=== PATIENT | female | born 1940 | race Caucasian/White ===

== ENCOUNTER 2023-09-04 13:36 | Inpatient (IN) | payer MEDICARE, BC ==
[~2023-09-04] VITALS: Ht 162.6 cm; Wt 92.1 kg
[2023-09-04] MEDS ORDERED: ZOLP5TAB8 PO (13:57)
[2023-09-04] MEDS ORDERED: LEVO100T78 PO (13:57)
[2023-09-04] MEDS ORDERED: IRBE300T19 PO (13:57)
[2023-09-04] MEDS ORDERED: CARV6.25 PO (13:57)
[2023-09-04] MEDS ORDERED: ASPI81TA31 PO (13:57)
[2023-09-04] MEDS ORDERED: BUPR100T5 PO (13:57)
[2023-09-04] MEDS ORDERED: FERR236T3 PO (13:57)
[2023-09-04] MEDS ORDERED: NITR50CA PO (13:57)
[2023-09-04] MEDS ORDERED: IMIP25TA6 PO (13:57)
[2023-09-04] MEDS ORDERED: VENL-192 PO (13:57)
[2023-09-04] MEDS ORDERED: BIOT10TA PO (13:57)
[2023-09-04] MEDS ORDERED: PANT40TA2 PO (13:57)
[2023-09-04] MEDS ORDERED: AMLO5TAB4 PO (13:57)
[2023-09-04] MEDS ORDERED: ERGO500040 PO (13:57)
[2023-09-04] MEDS ORDERED: CYAN100T9 PO (13:57)
[2023-09-04] MEDS ORDERED: DEXAMETHASONE SOD PHOSPHATE 10 MG INJ ONE (14:36)
[2023-09-04] MEDS ORDERED: AZITHROMYCIN 500MG/ D5W 250ML IVPB **ER PYXIS ONLY IV ONE (14:37)
[2023-09-04] MEDS ORDERED: CEFTRIAXONE /D5W 50ML IVPB **ER PYXIS IV ONE (14:37)
[2023-09-04 14:38] LABS: BASOPHILS # (AUTO) 0.2 K/UL (0.0-0.2); BASOPHILS % (AUTO) 2.5 % (0.0-2.0); EOSINOPHILS # (AUTO) 0.2 K/uL (0.0-0.7); EOSINOPHILS % (AUTO) 2.7 % (0.0-7.0); HEMATOCRIT 30.4 % (31.2-41.9); HEMOGLOBIN 10.4 g/dL (10.9-14.3); LYMPHOCYTES # (AUTO) 0.5 K/uL (0.8-4.8); LYMPHOCYTES % (AUTO) 7.5 % (20.5-51.5); MEAN CORPUSCULAR HEMOGLOBIN 33.3 uug (24.7-32.8); MEAN CORPUSCULAR HGB CONC 34 g/dL (32.3-35.6); MONOCYTES # (AUTO) 0.6 K/uL (0.1-1.30); MONOCYTES % (AUTO) 9.7 % (0.0-11.0); NEUTROPHILS % (AUTO) 77.6 % (38.5-71.5); PLATELET COUNT (AUTO) 196 K/uL (179-408); RED BLOOD CELL COUNT(AUTO) 3.14 MIL/uL (3.63-4.92); RED CELL DISTRIBUTION WIDTH 13.2 % (12.3-17.7); WHITE BLOOD COUNT (AUTO) 6.4 K/uL (3.8-11.8)
[2023-09-04 14:48] LABS: DIFFERENTIAL COMMENT 1
[2023-09-04] MEDS: DEXAMETHASONE SOD PHOSPHATE 4 MG INJ IV ONE (14:48)
[2023-09-04] MEDS: CEFTRIAXONE 1 G in IV DEXTROSE 5% 50 ML IV ONE (14:48)
[2023-09-04] MEDS: IV NORMAL SALINE 1000 ML BAG IV ONE (14:48)
[2023-09-04 15:05] LABS: CALCIUM 9.5 mg/dL (8.5-10.1); CARBON DIOXIDE 25 mmol/L (21-32); CHLORIDE 97 mmol/L (98-107); CREATININE 1.7 mg/dL (0.6-1.3); GLUCOSE 98 mg/dL (74-106); POTASSIUM 4.5 mmol/L (3.5-5.1); SODIUM SERUM 132 mmol/L (136-145); UREA NITROGEN, BLOOD 41 mg/dL (7-18)
[2023-09-04 15:09] LABS: ALANINE AMINOTRANSFERASE 54 U/L (14-59); ALBUMIN 3.5 g/dL (3.4-5.0); ALKALINE PHOSPHATASE 116 U/L (50-136); ASPARTATE AMINOTRANSFERASE 45 U/L (15-37); BILIRUBIN,DIRECT 0.1 mg/dL (0.0-0.2); BILIRUBIN,TOTAL 0.7 mg/dL (0.2-1.0); NT-PRO BNP 10351 pg/mL (0-125); TOTAL PROTEIN, SERUM 7.5 g/dL (6.4-8.2)
[2023-09-04] MEDS: AZITHROMYCIN 250 MG TABLET PO ONE (15:13)
[2023-09-04] MEDS: FUROSEMIDE 40 MG/4 ML VIAL IV ONE (16:03)
[2023-09-04] MEDS ORDERED: FUROSEMIDE 40 MG/4 ML VIAL ONE (16:03)
[2023-09-04] MEDS ORDERED: NITROGLYCERIN OINT 1 GM PACKET TP ONE (16:03)
[2023-09-04] MEDS: NITROGLYCERIN OINT 1 GM PACKET TP ONE (16:04)
[2023-09-04] MEDS ORDERED: HEPARIN SODIUM,PORCINE 5,000 UNITS/ML VIAL ONE (18:44)
[2023-09-04] MEDS ORDERED: HEPARIN/D5W DRIP 500 ML ONE (18:44)
[2023-09-04] MEDS: HEPARIN SODIUM,PORCINE 5,000 UNITS/ML VIAL IV ONE (18:57)
[2023-09-04] MEDS: HEPARIN/D5W DRIP 500 ML IV PRN (18:59)
[2023-09-04] MEDS ORDERED: ONDANSETRON 4 MG/2 ML VIAL IV PRN (21:15)
[2023-09-04] MEDS ORDERED: ACETAMINOPHEN 325 MG TABLET PO PRN (21:15)
[2023-09-04] MEDS ORDERED: CARVEDILOL 6.25 MG TABLET PO SCH (21:15)
[2023-09-04] MEDS ORDERED: IMIPRAMINE HCL 25 MG TABLET PO SCH (21:15)
[2023-09-04] MEDS ORDERED: HEPARIN/D5W DRIP 500 ML IV PRN (21:15)
[2023-09-04 21:47] LABS: *BILIRUBIN,URIN NEGATIVE (NEGATIVE); *BLOOD, URINE NEGATIVE (NEGATIVE); *CLARITY,URINE CLEAR (CLEAR); *COLOR,URINE YELLOW (YELLOW); *KETONES,URINE NEGATIVE (NEGATIVE); *PROTEIN,URINE NEGATIVE (NEGATIVE); *UROBILINOGEN,URINE 0.2 E.U./dl (NORMAL); LEUKOCYTE ESTERASE ,URINE TRACE (NEGATIVE); NITRITE, URINE NEGATIVE (NEGATIVE); PH,URINE 5.5 (5.0-8.0); UGLUCOSE NEGATIVE (NEGATIVE)
[2023-09-04 21:49] LABS: RBC,URINE 0-3 /HPF (0-3); WBC,URINE 0-3 /HPF (0-3)
[2023-09-05] VITALS (7 sets, daily range): BP systolic 107–147; BP diastolic 52–89; TEMP 97.8–98.4; O2SAT 95–100
[2023-09-05] MEDS: CARVEDILOL 6.25 MG TABLET PO ONE (03:02)
[2023-09-05] MEDS ORDERED: IMIPRAMINE HCL 25 MG TABLET ONE (03:04)
[2023-09-05] MEDS: IMIPRAMINE HCL 25 MG TABLET PO ONE (03:07)
[2023-09-05] MEDS: LEVOTHYROXINE SODIUM 100 MCG TABLET PO SCH (06:31)
[2023-09-05 06:36] LABS: BASOPHILS % (AUTO) 0.7 % (0.0-2.0); EOSINOPHILS % (AUTO) 0.1 % (0.0-7.0); HEMATOCRIT 27.6 % (31.2-41.9); HEMOGLOBIN 9.8 g/dL (10.9-14.3); LYMPHOCYTES # (AUTO) 0.7 K/uL (0.8-4.8); LYMPHOCYTES % (AUTO) 13.9 % (20.5-51.5); MEAN CORPUSCULAR HEMOGLOBIN 34.4 uug (24.7-32.8); MEAN CORPUSCULAR HGB CONC 35 g/dL (32.3-35.6); MEAN CORPUSCULAR VOLUME 97.3 fL (75.5-95.3); MONOCYTES # (AUTO) 0.6 K/uL (0.1-1.30); MONOCYTES % (AUTO) 10.4 % (0.0-11.0); NEUTROPHILS % (AUTO) 74.9 % (38.5-71.5); PLATELET COUNT (AUTO) 169 K/uL (179-408); RED BLOOD CELL COUNT(AUTO) 2.84 MIL/uL (3.63-4.92); RED CELL DISTRIBUTION WIDTH 13.3 % (12.3-17.7); WHITE BLOOD COUNT (AUTO) 5.4 K/uL (3.8-11.8)
[2023-09-05 06:46] LABS: DIFFERENTIAL COMMENT 1
[2023-09-05 07:08] LABS: ALANINE AMINOTRANSFERASE 48 U/L (14-59); ALKALINE PHOSPHATASE 98 U/L (50-136); ASPARTATE AMINOTRANSFERASE 31 U/L (15-37); BILIRUBIN,TOTAL 0.3 mg/dL (0.2-1.0); CALCIUM 9.5 mg/dL (8.5-10.1); CARBON DIOXIDE 26 mmol/L (21-32); CHLORIDE 100 mmol/L (98-107); CHOLESTEROL 184 mg/dL (<200); CREATININE 1.7 mg/dL (0.6-1.3); GLUCOSE 109 mg/dL (74-106); HDL CHOLESTEROL 80 mg/dL (40-60); MAGNESIUM 2.5 mg/dL (1.8-2.4); PHOSPHOROUS 3.2 mg/dL (2.5-4.9); POTASSIUM 4.1 mmol/L (3.5-5.1); SODIUM SERUM 135 mmol/L (136-145); TOTAL PROTEIN, SERUM 6.9 g/dL (6.4-8.2); TRIGLYCERIDES 65 MG/DL (30-150); UREA NITROGEN, BLOOD 38 mg/dL (7-18)
[2023-09-05 07:13] LABS: IRON, SERUM 37 ug/dL (50-175)
[2023-09-05 07:14] LABS: THYROID STIMULATING HORMONE 1.317 mIU/mL (0.358-3.740)
[2023-09-05] MEDS: PANTOPRAZOLE SODIUM 40 MG TABLET.DR PO SCH (08:29)
[2023-09-05] MEDS: AMLODIPINE 5 MG TABLET PO SCH (08:29)
[2023-09-05] MEDS: buPROPion SR 100 MG TABLET.SA PO SCH (08:29)
[2023-09-05] MEDS: ASPIRIN EC 81 MG TABLET.DR PO SCH (08:29)
[2023-09-05] MEDS: VENLAFAXINE 25 MG TABLET PO SCH (09:00)
[2023-09-05] MEDS ORDERED: FUROSEMIDE 40 MG/4 ML VIAL IV SCH (09:00)
[2023-09-05] MEDS ORDERED: FERROUS GLUCONATE PO SCH (09:00)
[2023-09-05] MEDS ORDERED: BIOTIN PO SCH (09:00)
[2023-09-05] MEDS: FERROUS GLUCONATE 324 MG TABLET PO SCH (10:01)
[2023-09-05] MEDS: AZITHROMYCIN IV 500 MG in IV DEXTROSE 5% 250 ML IV SCH (14:52)
[2023-09-05] MEDS: CEFTRIAXONE 1 G in IV DEXTROSE 5% 50 ML IV SCH (14:53)
[2023-09-05] MEDS: CARVEDILOL 6.25 MG TABLET PO SCH (17:05)
[2023-09-05] MEDS ORDERED: DOCUSATE SODIUM 250 MG CAPSULE PO SCH (21:00)
[2023-09-05] MEDS: ATORVASTATIN 40 MG TABLET PO SCH (21:27)
[2023-09-05] MEDS: DOCUSATE SODIUM 100 MG CAPSULE PO SCH (21:27)
[2023-09-05] MEDS: IMIPRAMINE HCL 25 MG TABLET PO SCH (21:30)
[2023-09-05] MEDS: ZOLPIDEM 5 MG TABLET PO SCH (21:50)
[2023-09-06 00:38] VITALS: BP 136/75; TEMP 98.2; O2SAT 100
[2023-09-06 05:24] VITALS: BP 122/73; TEMP 97.9; O2SAT 96; O2SAT 99
[2023-09-06 07:53] LABS: CARBON DIOXIDE 26 mmol/L (21-32); CHLORIDE 99 mmol/L (98-107); CREATININE 1.5 mg/dL (0.6-1.3); GLUCOSE 84 mg/dL (74-106); POTASSIUM 5.4 mmol/L (3.5-5.1); SODIUM SERUM 132 mmol/L (136-145); UREA NITROGEN, BLOOD 35 mg/dL (7-18)
[2023-09-06 08:03] LABS: CALCIUM 9.1 mg/dL (8.5-10.1)
[2023-09-06 08:08] VITALS: BP 108/78; TEMP 97.9; O2SAT 99
[2023-09-06 08:45] LABS: BASOPHILS % (AUTO) 0.6 % (0.0-2.0); DIFFERENTIAL COMMENT 0; EOSINOPHILS # (AUTO) 0.4 K/uL (0.0-0.7); EOSINOPHILS % (AUTO) 5.5 % (0.0-7.0); HEMATOCRIT 26.5 % (31.2-41.9); HEMOGLOBIN 9.4 g/dL (10.9-14.3); LYMPHOCYTES # (AUTO) 2.3 K/uL (0.8-4.8); LYMPHOCYTES % (AUTO) 30.3 % (20.5-51.5); MEAN CORPUSCULAR HEMOGLOBIN 35.9 uug (24.7-32.8); MEAN CORPUSCULAR HGB CONC 36 g/dL (32.3-35.6); MEAN CORPUSCULAR VOLUME 100.7 fL (75.5-95.3); MONOCYTES # (AUTO) 0.8 K/uL (0.1-1.30); MONOCYTES % (AUTO) 10.6 % (0.0-11.0); PLATELET COUNT (AUTO) 222 K/uL (179-408); RED BLOOD CELL COUNT(AUTO) 2.63 MIL/uL (3.63-4.92); RED CELL DISTRIBUTION WIDTH 13.2 % (12.3-17.7); WHITE BLOOD COUNT (AUTO) 7.5 K/uL (3.8-11.8)
[2023-09-06] MEDS: FUROSEMIDE 20 MG/2 ML VIAL IV SCH (10:07)
[2023-09-06] MEDS ORDERED: TIRZEPATIDE SQ (12:16)
[2023-09-06 12:46] VITALS: BP 132/80; TEMP 97.9; O2SAT 100
[2023-09-06] MEDS: IMIPRAMINE HCL 25 MG TABLET PO SCH (13:34)
[2023-09-06 16:01] VITALS: BP 131/75; TEMP 98.2; O2SAT 100
[2023-09-06] MEDS: VENLAFAXINE 25 MG TABLET PO SCH (17:32)
[2023-09-06] MEDS: buPROPion 100 MG TABLET PO SCH (17:32)
[2023-09-06 20:00] VITALS: BP 138/80; TEMP 98.4; O2SAT 100
[2023-09-07 00:52] VITALS: BP 165/90; TEMP 98.3; O2SAT 97
[2023-09-07 06:17] VITALS: BP 152/83; TEMP 97.2; O2SAT 93
[2023-09-07 07:33] LABS: CALCIUM 9.7 mg/dL (8.5-10.1); CARBON DIOXIDE 28 mmol/L (21-32); CHLORIDE 98 mmol/L (98-107); CREATININE 1.6 mg/dL (0.6-1.3); GLUCOSE 91 mg/dL (74-106); SODIUM SERUM 135 mmol/L (136-145); UREA NITROGEN, BLOOD 32 mg/dL (7-18)
[2023-09-07 07:34] LABS: BASOPHILS % (AUTO) 0.7 % (0.0-2.0); EOSINOPHILS # (AUTO) 0.5 K/uL (0.0-0.7); EOSINOPHILS % (AUTO) 6.9 % (0.0-7.0); HEMATOCRIT 27.6 % (31.2-41.9); LYMPHOCYTES # (AUTO) 1.5 K/uL (0.8-4.8); LYMPHOCYTES % (AUTO) 23.1 % (20.5-51.5); MEAN CORPUSCULAR HEMOGLOBIN 37.6 uug (24.7-32.8); MEAN CORPUSCULAR HGB CONC 36 g/dL (32.3-35.6); MEAN CORPUSCULAR VOLUME 103.5 fL (75.5-95.3); MONOCYTES # (AUTO) 0.9 K/uL (0.1-1.30); MONOCYTES % (AUTO) 13.3 % (0.0-11.0); NEUTROPHILS # (AUTO) 3.7 K/uL (1.8-8.9); PLATELET COUNT (AUTO) 193 K/uL (179-408); RED BLOOD CELL COUNT(AUTO) 2.66 MIL/uL (3.63-4.92); RED CELL DISTRIBUTION WIDTH 13.1 % (12.3-17.7); WHITE BLOOD COUNT (AUTO) 6.7 K/uL (3.8-11.8)
[2023-09-07 08:00] VITALS: BP 168/97; TEMP 97.8; O2SAT 100
[2023-09-07 08:05] LABS: DIFFERENTIAL COMMENT 1
[2023-09-07 12:00] VITALS: BP 148/81; TEMP 98.6; O2SAT 100
[2023-09-07] MEDS ORDERED: [UNRECOGNIZED DRUG - OTHER] SQ SCH (12:30)
[2023-09-07] MEDS ORDERED: TIRZEPATIDE SQ SCH (12:30)
[2023-09-07 14:46] VITALS: O2SAT 98
[2023-09-07 16:49] VITALS: BP 131/77; TEMP 98.6; O2SAT 100
[2023-09-07] MEDS ORDERED: GUAIFENESIN LA 600 MG TABLET.SA PO SCH (21:00)
[2023-09-10] MEDS ORDERED: ERGOCALCIFEROL 50,000 UNIT CAPSULE PO SCH (09:00)
== END 2023-09-07 18:57 | disposition short-term general hospital (02) | DRG 280 ==
LOC: ER 13:36 → TELE-TD3 21:00 → TELE3 09-05 08:45
PROVIDERS: ADMIT Internal Medicine; ATTEND Internal Medicine
PROC: 05HC33Z Insertion of Infusion Device into Left Basilic Vein, Percutaneous Approach (ICD-10-PCS; principal; 2023-09-05)
DX: I13.0 Hypertensive heart and chronic kidney disease with heart failure and stage 1 through stage 4 chronic kidney disease, or unspecified chronic kidney disease (principal); I40.0 Infective myocarditis; I21.A1 Myocardial infarction type 2; I50.23 Acute on chronic systolic (congestive) heart failure; N17.0 Acute kidney failure with tubular necrosis; J96.01 Acute respiratory failure with hypoxia; J15.9 Unspecified bacterial pneumonia; D68.59 Other primary thrombophilia; I25.2 Old myocardial infarction; I25.5 Ischemic cardiomyopathy; K21.9 Gastro-esophageal reflux disease without esophagitis; I48.0 Paroxysmal atrial fibrillation; M15.9 Polyosteoarthritis, unspecified; E03.9 Hypothyroidism, unspecified; Z79.890 Hormone replacement therapy; E66.9 Obesity, unspecified; Z68.34 Body mass index [BMI] 34.0-34.9, adult; I27.20 Pulmonary hypertension, unspecified; F32.A Depression, unspecified; Z79.899 Other long term (current) drug therapy; G89.29 Other chronic pain; Z86.73 Personal history of transient ischemic attack (TIA), and cerebral infarction without residual deficits; Z74.09 Other reduced mobility; N18.9 Chronic kidney disease, unspecified; Z87.442 Personal history of urinary calculi; Z88.2 Allergy status to sulfonamides; Z88.0 Allergy status to penicillin; Z90.710 Acquired absence of both cervix and uterus; Z96.612 Presence of left artificial shoulder joint; Z96.611 Presence of right artificial shoulder joint; Z87.440 Personal history of urinary (tract) infections; D53.9 Nutritional anemia, unspecified
CPT/HCPCS: 36415; 70450; 71045; 71250; 83550; 83605; 83735; 84100; 84443; 84484; 85025; 85730; 87040; 93005; 93307; A4606; A4663; G0378; J0456; J0696; J1100; J1644; J1940; J7040; J7050